=== PATIENT | male | born 1950 | race Caucasian/White ===

== ENCOUNTER 2018-07-14 08:34 | Outpatient (CLI) | payer MEDICARE ==
--- NOTE | 2018-07-14 11:17 | CT ---
NONCONTRAST LOW DOSE CT PULMONARY LUNG SCAN: Date: 07-14-18 History: Tobacco abuse. 30+ year history of smoking. Comparison: None available. FINDINGS: There are scattered peripherally located interstitial linear densities within the anterior aspects of the upper lobes bilaterally as well as in the region of the lingula and right middle lobe in each job ng base which may be related to mild chronic interstitial lung changes although a few areas of slight ly greater patchy density are seen and superimposed pneumonitis cannot be entirely excluded. No discrete pulmonary nodule or mass is seen. There is no evidence of a pleural effusion. Vascular calcifications are seen in the coronary arteries as well as involving the thoracic aorta. Lack of intravenous contrast limits evaluation of the vascular structures and mediastinum. There is a mildly prominent precarinal lymph node which measures 1.2 cm in short axis dimension. No additional enlarged lymph nodes are seen. There is a prominent calcification seen anterior to the right humeral head which appears extracapsula r and is mixed density with areas of fat density and the calcification is irregular. This is overall specific, but has an overall nonaggressive appearance. However, given the appearance of this calcific ation adjacent fat density, MRI right shoulder is recommended for further evaluation with and without IV contrast. Mild degenerative changes are seen in the thoracic spine. The visualized upper abdomen demonstrates grossly normal nonenhanced CT appearance. IMPRESSION: 1. Lung rads category S - Significant findings which need follow-up. Heterogeneous coarse calcificat ion measuring 1.9 cm which demonstrates mixed density with associated areas of fat density. This joaquina ears extracapsular. The exact etiology is uncertain and this could be post-traumatic in origin, but g iven the adjacent fat density and morphology of the calcification, MRI of the right shoulder with and without IV contrast is recommended for further evaluation. This is in the region of the subscapulari s muscle. 2. Lung RADS category 2 - interstitial densities scattered within the periphery of the lungs bilatera lly, greater at the lung bases which may be related to chronic interstitial lung changes. Irregular nodularity with associated interstitial densities within the right middle lobe, again, likely related to chronic lung changes. Continued annual screening with low dose CT scan in 12 months is recommende d. 4. Nonspecific mildly prominent subcarinal lymph node. This may be reactive in origin. POS: [facility]
== END 2018-07-14 08:35 | disposition home or self-care (01) ==
LOC: CT 08:34
PROVIDERS: ATTEND Family Medicine
DX: Z87.891 Personal history of nicotine dependence (principal); J98.4 Other disorders of lung
CPT/HCPCS: G0297

== ENCOUNTER 2018-08-13 14:13 | Outpatient (CLI) | payer MEDICARE ==
[~2018-08-13 14:13] MED LIST: Gadobenate Dimeglumine 529 MG/1 ML (20ML VIAL) ONE
[2018-08-13 15:15] LABS: Estimated GFR-MDRD - POC Greater than 90
--- NOTE | 2018-08-13 17:51 | MRI ---
MRI OF THE RIGHT SHULDER WITH AND WITHOUT IV CONTRAST: DATE: 08/13/2018. PROVIDED CLINICAL HISTORY: Soft tissue mass. FINDINGS: Correlation is made with the CT examination dated 07/14/2018. The calcification described on the CT examination at the caudal aspects of the subscapularis muscle r epresents a calcified component of intramuscular extension of a large fat signal intensity mass at th e posterior aspect of the proximal humerus and right axillary region. This measures approximately 7.3 x 7.7 cm in AP x CC dimensions and approximately 7.8 cm in transverse dimension. This is primarily located at the deep margin of the long head of the triceps muscle, and extends cephalad posterior to the lateral head of the triceps musculature deep to the lateral head o f the deltoid muscle. This demonstrates a medial course in the region of the quadrilateral space wit h extension into the caudal aspects of the subscapularis muscle where there is associated coarse calc ification. There is no definitive enhancing nodule evident. There is multifocal fine internal septation with so me somewhat more conspicuous septations near its extent in the quadrilateral space. There is evidence for partial-thickness interstitial tearing involving the distal conjoined tendon. Signal alteration in the region of the superior labrum may reflect SLAP tear. 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 IMPRESSION: Large lipomatous lesion at the posterior aspect of the right shoulder as described above. 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 Complicated lipoma could also be considered. POS: OFF
== END 2018-08-13 14:14 | disposition home or self-care (01) ==
LOC: SCSMRI 14:13
PROVIDERS: ATTEND Orthopaedic Surgery
DX: M24.011 Loose body in right shoulder (principal); M25.411 Effusion, right shoulder; M25.811 Other specified joint disorders, right shoulder
CPT/HCPCS: 82565

== ENCOUNTER 2019-09-23 15:02 | Emergency (ER) | payer MEDICARE ==
[2019-09-23] MEDS ORDERED: Dexamethasone 4 mg/ml Vial ONE (15:51)
== END 2019-09-23 16:16 | disposition home or self-care (01) ==
LOC: ERS 15:02
DX: L23.7 Allergic contact dermatitis due to plants, except food (principal); E03.9 Hypothyroidism, unspecified; E78.00 Pure hypercholesterolemia, unspecified; Z86.73 Personal history of transient ischemic attack (TIA), and cerebral infarction without residual deficits; Z87.891 Personal history of nicotine dependence
CPT/HCPCS: 96372; 99283; J1100

== ENCOUNTER 2021-01-14 09:41 | Emergency (ER) | payer MEDICARE ==
[2021-01-14 10:23] LABS: #Lymphocytes 1.3 thou/uL (1.20-3.40); #Monocytes 0.3 thou/uL (0.11-0.59); #Neutrophils 3.7 thou/uL (1.40-6.50); %Basophils 0.2 % (0.0-1.0); %Eosinophils 0.5 % (0.0-10.0); %Lymphocytes 24.6 % (21.0-51.0); %Monocytes 5.5 % (0.0-10.0); %Neutrophils 69.2 % (42.0-75.0); Mean Corpuscular Hemoglobin 30.8 pg (27.0-31.0); Mean Corpuscular Volume 93.2 fL (78.0-98.0); Mean Platelet Volume 7.7 fL (7.4-10.4); Platelet Count 166 thou/uL (130-400); RBC Distribution Width 12.8 % (11.5-14.5); Red Blood Cell (RBC) Count 4.55 mill/uL (4.70-6.10); White Blood Cell (WBC) Count 5.4 thou/uL (4.8-10.8)
[2021-01-14 10:45] LABS: ALT (SGPT) 24 U/L (8-55); AST (SGOT) 35 U/L (5-34); Alkaline Phosphatase 57 U/L (40-110); Anion Gap 12 mmol/L (10-20); BUN (Urea Nitrogen) 14 mg/dL (8.4-25.7); Bilirubin, Total 0.5 mg/dL (0.2-1.2); Calc. Creatinine Clearance 0 mL/min (70-130); Calcium 8.8 mg/dL (7.8-10.44); Carbon Dioxide 28 mmol/L (23-31); Chloride 98 mmol/L (98-107); Globulin 3.6 g/dL (2.4-3.5); Glucose 153 mg/dL (80-115); Potassium 3.9 mmol/L (3.5-5.1); Protein, Total 7.6 g/dL (5.8-8.1); Sodium 134 mmol/L (136-145)
== END 2021-01-14 11:29 | disposition home or self-care (01) ==
LOC: ERS 09:41
DX: U07.1 COVID-19 (principal); J12.82 Pneumonia due to coronavirus disease 2019; E03.9 Hypothyroidism, unspecified; E78.00 Pure hypercholesterolemia, unspecified; R73.03 Prediabetes; Z86.73 Personal history of transient ischemic attack (TIA), and cerebral infarction without residual deficits; Z87.891 Personal history of nicotine dependence
CPT/HCPCS: 71045; 80053; 85025

== ENCOUNTER 2021-01-17 17:37 | Inpatient (IN) | payer MEDICARE ==
[2021-01-17] MEDS ORDERED: Acetaminophen 500 MG TAB ONE (18:23)
[2021-01-17] MEDS ORDERED: Ketorolac Tromethamine 30 MG/ML VIAL ONE (18:23)
[2021-01-17 18:48] LABS: #Lymphocytes 1.1 thou/uL (1.20-3.40); #Monocytes 0.4 thou/uL (0.11-0.59); #Neutrophils 5.5 thou/uL (1.40-6.50); %Basophils 0.4 % (0.0-1.0); %Lymphocytes 15.7 % (21.0-51.0); %Monocytes 5.7 % (0.0-10.0); %Neutrophils 78.2 % (42.0-75.0); Hemoglobin 13.4 g/dL (14.0-18.0); Mean Corpuscular HGB CONC 34.4 g/dL (32.0-36.0); Mean Corpuscular Hemoglobin 31.5 pg (27.0-31.0); Mean Corpuscular Volume 91.6 fL (78.0-98.0); Mean Platelet Volume 7.6 fL (7.4-10.4); Platelet Count 187 thou/uL (130-400); RBC Distribution Width 12.7 % (11.5-14.5); Red Blood Cell (RBC) Count 4.25 mill/uL (4.70-6.10); White Blood Cell (WBC) Count 7.1 thou/uL (4.8-10.8)
[2021-01-17 19:01] LABS: ALT (SGPT) 19 U/L (8-55); AST (SGOT) 43 U/L (5-34); Albumin 3.4 g/dL (3.4-4.8); Alkaline Phosphatase 54 U/L (40-110); Anion Gap 12 mmol/L (10-20); BUN (Urea Nitrogen) 14 mg/dL (8.4-25.7); Bilirubin, Total 0.5 mg/dL (0.2-1.2); Calc. Creatinine Clearance 0 mL/min (70-130); Calcium 8.5 mg/dL (7.8-10.44); Carbon Dioxide 28 mmol/L (23-31); Chloride 101 mmol/L (98-107); Globulin 3.4 g/dL (2.4-3.5); Glucose 158 mg/dL (80-115); Potassium 4.1 mmol/L (3.5-5.1); Protein, Total 6.8 g/dL (5.8-8.1); Sodium 137 mmol/L (136-145)
[2021-01-17] MEDS ORDERED: diphenhydrAMINE 50 MG/ML VIAL ONE (21:36)
[2021-01-17] MEDS ORDERED: Dexamethasone 10 MG/ML VIAL ONE (21:40)
[2021-01-17 22:38] LABS: Troponin I Less than 0.010 ng/mL (< 0.028)
[2021-01-17] MEDS ORDERED: Dextrose 50% Abboject 50 ML SYRINGE SLOW IVP PRN (22:47)
[2021-01-17] MEDS ORDERED: Dextrose 5% in Water 1,000 ML IV PRN (22:47)
[2021-01-18] MEDS ORDERED: traZODone HCl 50 MG TAB ONE (00:57)
[2021-01-18 01:38] LABS: Troponin I Less than 0.010 ng/mL (< 0.028)
[2021-01-18] MEDS ORDERED: Enoxaparin Sodium 40 MG/0.4 ML SYRINGE ONE ×2 (02:12→08:34)
[2021-01-18] MEDS: Enoxaparin Sodium 40 MG/0.4 ML SYRINGE SC SCH ×2 (02:17→08:38)
[2021-01-18 05:23] LABS: #Lymphocytes 0.8 thou/uL (1.20-3.40); #Monocytes 0.3 thou/uL (0.11-0.59); #Neutrophils 4.9 thou/uL (1.40-6.50); %Basophils 0.2 % (0.0-1.0); %Eosinophils 0.1 % (0.0-10.0); %Lymphocytes 13.4 % (21.0-51.0); %Monocytes 4.5 % (0.0-10.0); %Neutrophils 81.8 % (42.0-75.0); Hemoglobin 13.1 g/dL (14.0-18.0); Mean Corpuscular HGB CONC 33.1 g/dL (32.0-36.0); Mean Corpuscular Hemoglobin 30.6 pg (27.0-31.0); Mean Corpuscular Volume 92.4 fL (78.0-98.0); Mean Platelet Volume 7.4 fL (7.4-10.4); Platelet Count 196 thou/uL (130-400); RBC Distribution Width 12.8 % (11.5-14.5); Red Blood Cell (RBC) Count 4.29 mill/uL (4.70-6.10); White Blood Cell (WBC) Count 5.9 thou/uL (4.8-10.8)
[2021-01-18 05:41] LABS: ALT (SGPT) 21 U/L (8-55); AST (SGOT) 40 U/L (5-34); Albumin 3.2 g/dL (3.4-4.8); Alkaline Phosphatase 52 U/L (40-110); Anion Gap 10 mmol/L (10-20); BUN (Urea Nitrogen) 16 mg/dL (8.4-25.7); Bilirubin, Total 0.5 mg/dL (0.2-1.2); Calc. Creatinine Clearance 108 mL/min (70-130); Calcium 8.7 mg/dL (7.8-10.44); Carbon Dioxide 30 mmol/L (23-31); Chloride 100 mmol/L (98-107); Globulin 3.5 g/dL (2.4-3.5); Glucose 217 mg/dL (80-115); Potassium 4.1 mmol/L (3.5-5.1); Protein, Total 6.7 g/dL (5.8-8.1); Sodium 136 mmol/L (136-145)
[2021-01-18] MEDS ORDERED: Dexamethasone 4 MG TAB ONE (08:32)
[2021-01-18] MEDS ORDERED: Aspirin 325 MG TAB ONE (08:32)
[2021-01-18] MEDS: Dexamethasone 4 MG TAB PO SCH (08:38)
[2021-01-18] MEDS: metFORMIN 500 MG TAB PO SCH ×2 (08:50→16:23)
[2021-01-18] MEDS: Levothyroxine Sodium 100 MCG TAB PO SCH (08:50)
[2021-01-18] MEDS ORDERED: Aspirin 325 mg Enteric Coated Tablet PO SCH (09:00)
[2021-01-18] MEDS: HumaLOG 300 UNITS/3 ML VIAL SC PRN ×3 (11:41→20:49)
[2021-01-18] MEDS: Atorvastatin Calcium 40 MG TAB PO SCH (20:41)
[2021-01-18] MEDS: Acetaminophen 325 MG TAB PO PRN (21:06)
[2021-01-19 05:25] LABS: #Lymphocytes 1.5 thou/uL (1.20-3.40); #Neutrophils 11.2 thou/uL (1.40-6.50); %Basophils 0.2 % (0.0-1.0); %Lymphocytes 10.7 % (21.0-51.0); %Monocytes 7.5 % (0.0-10.0); %Neutrophils 81.6 % (42.0-75.0); Mean Corpuscular HGB CONC 34.1 g/dL (32.0-36.0); Mean Corpuscular Hemoglobin 31.3 pg (27.0-31.0); Mean Corpuscular Volume 91.7 fL (78.0-98.0); Mean Platelet Volume 7.8 fL (7.4-10.4); Platelet Count 238 thou/uL (130-400); RBC Distribution Width 12.6 % (11.5-14.5); Red Blood Cell (RBC) Count 4.15 mill/uL (4.70-6.10); White Blood Cell (WBC) Count 13.8 thou/uL (4.8-10.8)
[2021-01-19] MEDS: Levothyroxine Sodium 100 MCG TAB PO SCH (05:44)
[2021-01-19] MEDS: HumaLOG 300 UNITS/3 ML VIAL SC PRN ×3 (05:57→17:18)
[2021-01-19 05:59] LABS: ALT (SGPT) 19 U/L (8-55); AST (SGOT) 43 U/L (5-34); Albumin 3.1 g/dL (3.4-4.8); Alkaline Phosphatase 53 U/L (40-110); Anion Gap 13 mmol/L (10-20); BUN (Urea Nitrogen) 21 mg/dL (8.4-25.7); Bilirubin, Total 0.4 mg/dL (0.2-1.2); Calc. Creatinine Clearance 121 mL/min (70-130); Calcium 8.7 mg/dL (7.8-10.44); Carbon Dioxide 25 mmol/L (23-31); Chloride 101 mmol/L (98-107); Globulin 3.3 g/dL (2.4-3.5); Glucose 190 mg/dL (80-115); Protein, Total 6.4 g/dL (5.8-8.1); Sodium 135 mmol/L (136-145)
[2021-01-19] MEDS: Benzonatate 100 MG CAP PO PRN ×2 (06:11→21:09)
[2021-01-19] MEDS: Aspirin 325 mg Enteric Coated Tablet PO SCH (08:36)
[2021-01-19] MEDS: Famotidine 20 MG TAB PO SCH (08:36)
[2021-01-19] MEDS: Enoxaparin Sodium 40 MG/0.4 ML SYRINGE SC SCH (08:37)
[2021-01-19] MEDS: Dexamethasone 4 MG TAB PO SCH (08:37)
[2021-01-19] MEDS: metFORMIN 500 MG TAB PO SCH ×2 (08:37→17:18)
[2021-01-19] MEDS: Atorvastatin Calcium 40 MG TAB PO SCH (21:09)
[2021-01-20] MEDS: Benzonatate 100 MG CAP PO PRN ×3 (02:28→21:35)
[2021-01-20] MEDS: Guaifenesin DM 100-10/5 ML UDCUP PO PRN ×2 (02:52→17:47)
[2021-01-20] MEDS: Levothyroxine Sodium 100 MCG TAB PO SCH (05:17)
[2021-01-20] MEDS: Acetaminophen 325 MG TAB PO PRN (05:42)
[2021-01-20] MEDS: HumaLOG 300 UNITS/3 ML VIAL SC PRN ×2 (05:43→17:40)
[2021-01-20 07:24] LABS: #Lymphocytes 1.4 thou/uL (1.20-3.40); #Neutrophils 15.2 thou/uL (1.40-6.50); %Basophils 0.1 % (0.0-1.0); %Eosinophils 0.1 % (0.0-10.0); %Lymphocytes 7.7 % (21.0-51.0); %Monocytes 5.8 % (0.0-10.0); %Neutrophils 86.4 % (42.0-75.0); Hemoglobin 12.8 g/dL (14.0-18.0); Mean Corpuscular HGB CONC 33.2 g/dL (32.0-36.0); Mean Corpuscular Hemoglobin 30.2 pg (27.0-31.0); Mean Corpuscular Volume 90.9 fL (78.0-98.0); Mean Platelet Volume 7.4 fL (7.4-10.4); Platelet Count 311 thou/uL (130-400); RBC Distribution Width 12.8 % (11.5-14.5); Red Blood Cell (RBC) Count 4.23 mill/uL (4.70-6.10); White Blood Cell (WBC) Count 17.6 thou/uL (4.8-10.8)
[2021-01-20 07:44] LABS: ALT (SGPT) 25 U/L (8-55); AST (SGOT) 51 U/L (5-34); Albumin 3.3 g/dL (3.4-4.8); Alkaline Phosphatase 77 U/L (40-110); Anion Gap 15 mmol/L (10-20); BUN (Urea Nitrogen) 19 mg/dL (8.4-25.7); Bilirubin, Total 0.8 mg/dL (0.2-1.2); Calc. Creatinine Clearance 119 mL/min (70-130); Calcium 8.9 mg/dL (7.8-10.44); Carbon Dioxide 27 mmol/L (23-31); Chloride 98 mmol/L (98-107); Globulin 3.6 g/dL (2.4-3.5); Glucose 163 mg/dL (80-115); Potassium 3.6 mmol/L (3.5-5.1); Protein, Total 6.9 g/dL (5.8-8.1); Sodium 136 mmol/L (136-145)
[2021-01-20] MEDS: Famotidine 20 MG TAB PO SCH (08:37)
[2021-01-20] MEDS: Aspirin 325 mg Enteric Coated Tablet PO SCH (08:37)
[2021-01-20] MEDS: Enoxaparin Sodium 40 MG/0.4 ML SYRINGE SC SCH (08:37)
[2021-01-20] MEDS: Dexamethasone 4 MG TAB PO SCH (08:37)
[2021-01-20] MEDS: metFORMIN 500 MG TAB PO SCH ×2 (08:37→17:40)
[2021-01-20] MEDS: Atorvastatin Calcium 40 MG TAB PO SCH (21:32)
[2021-01-21] MEDS: Guaifenesin DM 100-10/5 ML UDCUP PO PRN ×2 (01:35→23:52)
[2021-01-21] MEDS: Levothyroxine Sodium 100 MCG TAB PO SCH (06:09)
[2021-01-21 06:40] LABS: #Lymphocytes 1.1 thou/uL (1.20-3.40); #Monocytes 0.8 thou/uL (0.11-0.59); #Neutrophils 13.9 thou/uL (1.40-6.50); %Basophils 0.3 % (0.0-1.0); %Eosinophils 0.1 % (0.0-10.0); %Lymphocytes 7.2 % (21.0-51.0); %Monocytes 4.8 % (0.0-10.0); %Neutrophils 87.6 % (42.0-75.0); Hemoglobin 13.2 g/dL (14.0-18.0); Mean Corpuscular HGB CONC 34.3 g/dL (32.0-36.0); Mean Corpuscular Hemoglobin 31.2 pg (27.0-31.0); Mean Corpuscular Volume 91.1 fL (78.0-98.0); Mean Platelet Volume 7.5 fL (7.4-10.4); Platelet Count 281 thou/uL (130-400); RBC Distribution Width 12.7 % (11.5-14.5); Red Blood Cell (RBC) Count 4.23 mill/uL (4.70-6.10); White Blood Cell (WBC) Count 15.9 thou/uL (4.8-10.8)
[2021-01-21 07:08] LABS: ALT (SGPT) 28 U/L (8-55); AST (SGOT) 42 U/L (5-34); Alkaline Phosphatase 89 U/L (40-110); Anion Gap 10 mmol/L (10-20); BUN (Urea Nitrogen) 19 mg/dL (8.4-25.7); Calc. Creatinine Clearance 133 mL/min (70-130); Calcium 8.6 mg/dL (7.8-10.44); Carbon Dioxide 31 mmol/L (23-31); Chloride 100 mmol/L (98-107); Globulin 3.5 g/dL (2.4-3.5); Glucose 156 mg/dL (80-115); Potassium 3.6 mmol/L (3.5-5.1); Protein, Total 6.5 g/dL (5.8-8.1); Sodium 137 mmol/L (136-145)
[2021-01-21] MEDS: Enoxaparin Sodium 40 MG/0.4 ML SYRINGE SC SCH (08:33)
[2021-01-21] MEDS: Aspirin 325 mg Enteric Coated Tablet PO SCH (08:34)
[2021-01-21] MEDS: Acetaminophen 325 MG TAB PO PRN (08:34)
[2021-01-21] MEDS: Dexamethasone 4 MG TAB PO SCH (08:34)
[2021-01-21] MEDS: Famotidine 20 MG TAB PO SCH (08:34)
[2021-01-21] MEDS: metFORMIN 500 MG TAB PO SCH ×2 (08:34→16:18)
[2021-01-21] MEDS: Benzonatate 100 MG CAP PO PRN ×2 (08:34→20:15)
[2021-01-21] MEDS: Lorazepam 0.5 MG TAB PO PRN ×2 (12:34→22:13)
[2021-01-21] MEDS: HumaLOG 300 UNITS/3 ML VIAL SC PRN ×2 (12:34→16:17)
[2021-01-21] MEDS: Atorvastatin Calcium 40 MG TAB PO SCH (20:15)
[2021-01-22] MEDS ORDERED: Albuterol Sulfate 2.5 mg/3 ml Neb EZPAP PRN (02:04)
[2021-01-22] MEDS ORDERED: Albuterol Sulfate 2.5 mg/3 ml Neb NEB SCH (03:00)
[2021-01-22] MEDS ORDERED: guaiFENesin ER 600 MG TAB PO SCH (03:00)
[2021-01-22 03:35] LABS: Actual Bicarbonate (HCO3a) 26.8 mEq/L (22-28); Base Excess (BEa) 4.3 mEq/L (-2.0 to +3.0); CO2 Tension 33.6 mmHg (35.0-45.0); Calcium, Ionized (arterial) 1.11 mmol/L (1.12-1.30); Carboxyhemoglobin (COHb) 0.6 gm% (0.0-3.0); Hemoglobin (Hb) 13.6 g/dL (14.0-18.0); Potassium - ABG Lab 3.51 mmol/L (3.70-5.30); pH, Arterial 7.52 (7.35-7.45)
[2021-01-22 03:37] LABS: O2 Tension (PaO2), arterial 52.4 mmHg (> 80.0); Puncture Site RRA
[2021-01-22 05:18] LABS: Actual Bicarbonate (HCO3a) 26.6 mEq/L (22-28); Base Excess (BEa) 3.2 mEq/L (-2.0 to +3.0); CO2 Tension 36.7 mmHg (35.0-45.0); Calcium, Ionized (arterial) 1.11 mmol/L (1.12-1.30); Carboxyhemoglobin (COHb) 0.3 gm% (0.0-3.0); Hemoglobin (Hb) 13.2 g/dL (14.0-18.0); O2 Tension (PaO2), arterial 98.2 mmHg (> 80.0); Potassium - ABG Lab 3.42 mmol/L (3.70-5.30); pH, Arterial 7.48 (7.35-7.45)
[2021-01-22 05:21] LABS: Puncture Site LRA
[2021-01-22 05:22] LABS: ALV-art Gradient 426.325 mmHg (0-20)
[2021-01-22] MEDS: Levothyroxine Sodium 100 MCG TAB PO SCH (06:51)
[2021-01-22 07:19] LABS: #Monocytes 0.4 thou/uL (0.11-0.59); %Basophils 0.1 % (0.0-1.0); %Lymphocytes 6.2 % (21.0-51.0); %Monocytes 2.4 % (0.0-10.0); %Neutrophils 91.3 % (42.0-75.0); Mean Corpuscular HGB CONC 34.1 g/dL (32.0-36.0); Mean Corpuscular Hemoglobin 31.2 pg (27.0-31.0); Mean Corpuscular Volume 91.5 fL (78.0-98.0); Mean Platelet Volume 7.5 fL (7.4-10.4); Platelet Count 267 thou/uL (130-400); RBC Distribution Width 12.7 % (11.5-14.5); Red Blood Cell (RBC) Count 4.17 mill/uL (4.70-6.10); White Blood Cell (WBC) Count 15.3 thou/uL (4.8-10.8)
[2021-01-22 07:48] LABS: ALT (SGPT) 35 U/L (8-55); AST (SGOT) 40 U/L (5-34); Albumin 3.1 g/dL (3.4-4.8); Alkaline Phosphatase 115 U/L (40-110); Anion Gap 15 mmol/L (10-20); BUN (Urea Nitrogen) 19 mg/dL (8.4-25.7); Bilirubin, Total 1.3 mg/dL (0.2-1.2); Calc. Creatinine Clearance 147 mL/min (70-130); Calcium 8.4 mg/dL (7.8-10.44); Carbon Dioxide 28 mmol/L (23-31); Chloride 99 mmol/L (98-107); Globulin 3.2 g/dL (2.4-3.5); Glucose 148 mg/dL (80-115); Potassium 3.7 mmol/L (3.5-5.1); Protein, Total 6.3 g/dL (5.8-8.1); Sodium 138 mmol/L (136-145)
[2021-01-22] MEDS: Enoxaparin Sodium 40 MG/0.4 ML SYRINGE SC SCH ×2 (08:37→20:11)
[2021-01-22] MEDS: Famotidine 20 MG TAB PO SCH (08:38)
[2021-01-22] MEDS: metFORMIN 500 MG TAB PO SCH ×2 (08:38→18:38)
[2021-01-22] MEDS: Aspirin 325 mg Enteric Coated Tablet PO SCH (08:38)
[2021-01-22] MEDS: Dexamethasone 4 MG TAB PO SCH ×2 (08:38→20:11)
[2021-01-22] MEDS ORDERED: BARICITINIB 2 MG TAB PO SCH (10:45)
[2021-01-22] MEDS: BARICITINIB 2 MG TAB PO SCH (18:39)
[2021-01-22] MEDS: Atorvastatin Calcium 40 MG TAB PO SCH (20:11)
[2021-01-22] MEDS: HumaLOG 300 UNITS/3 ML VIAL SC PRN (20:27)
[2021-01-22] MEDS: Mometasone 200 MCG/Formoterol 5 MCG 120 PUFF INHALER INH SCH (21:46)
[2021-01-23] MEDS: Melatonin 3 MG TAB PO PRN (00:09)
[2021-01-23] MEDS: Benzonatate 100 MG CAP PO PRN (00:09)
[2021-01-23 04:04] LABS: #Lymphocytes 0.7 thou/uL (1.20-3.40); #Monocytes 0.4 thou/uL (0.11-0.59); #Neutrophils 14.1 thou/uL (1.40-6.50); %Lymphocytes 4.8 % (21.0-51.0); %Monocytes 2.5 % (0.0-10.0); %Neutrophils 92.7 % (42.0-75.0); Hemoglobin 12.9 g/dL (14.0-18.0); Mean Corpuscular HGB CONC 34.6 g/dL (32.0-36.0); Mean Corpuscular Hemoglobin 31.8 pg (27.0-31.0); Mean Corpuscular Volume 91.9 fL (78.0-98.0); Mean Platelet Volume 7.7 fL (7.4-10.4); Platelet Count 269 thou/uL (130-400); RBC Distribution Width 12.8 % (11.5-14.5); Red Blood Cell (RBC) Count 4.04 mill/uL (4.70-6.10); White Blood Cell (WBC) Count 15.2 thou/uL (4.8-10.8)
[2021-01-23 04:38] LABS: ALT (SGPT) 49 U/L (8-55); AST (SGOT) 47 U/L (5-34); Alkaline Phosphatase 111 U/L (40-110); Anion Gap 13 mmol/L (10-20); BUN (Urea Nitrogen) 21 mg/dL (8.4-25.7); Calc. Creatinine Clearance 126 mL/min (70-130); Calcium 8.6 mg/dL (7.8-10.44); Carbon Dioxide 28 mmol/L (23-31); Chloride 101 mmol/L (98-107); Globulin 3.8 g/dL (2.4-3.5); Glucose 194 mg/dL (80-115); Potassium 3.7 mmol/L (3.5-5.1); Protein, Total 6.8 g/dL (5.8-8.1); Sodium 138 mmol/L (136-145)
[2021-01-23] MEDS: Levothyroxine Sodium 100 MCG TAB PO SCH (05:16)
[2021-01-23] MEDS: HumaLOG 300 UNITS/3 ML VIAL SC PRN ×3 (06:22→21:23)
[2021-01-23] MEDS: Mometasone 200 MCG/Formoterol 5 MCG 120 PUFF INHALER INH SCH ×2 (06:22→18:59)
[2021-01-23] MEDS: Aspirin 325 mg Enteric Coated Tablet PO SCH (08:57)
[2021-01-23] MEDS: Famotidine 20 MG TAB PO SCH ×2 (08:57→20:06)
[2021-01-23] MEDS: Guaifenesin DM 100-10/5 ML UDCUP PO PRN ×2 (08:57→21:33)
[2021-01-23] MEDS: Enoxaparin Sodium 40 MG/0.4 ML SYRINGE SC SCH ×2 (08:57→20:06)
[2021-01-23] MEDS: metFORMIN 500 MG TAB PO SCH ×2 (08:57→16:48)
[2021-01-23] MEDS: Dexamethasone 4 MG TAB PO SCH ×2 (08:57→20:06)
[2021-01-23] MEDS: BARICITINIB 2 MG TAB PO SCH (16:48)
[2021-01-23] MEDS: Atorvastatin Calcium 40 MG TAB PO SCH (20:06)
[2021-01-23] MEDS ORDERED: Sodium Chloride 0.65% Nasal 44 ML BOT EA NARE PRN (21:27)
[2021-01-24] MEDS: Guaifenesin DM 100-10/5 ML UDCUP PO PRN ×4 (02:35→22:53)
[2021-01-24 03:59] LABS: #Lymphocytes 0.9 thou/uL (1.20-3.40); #Monocytes 0.4 thou/uL (0.11-0.59); #Neutrophils 12.5 thou/uL (1.40-6.50); %Basophils 0.1 % (0.0-1.0); %Eosinophils 0.1 % (0.0-10.0); %Lymphocytes 6.7 % (21.0-51.0); %Monocytes 3.2 % (0.0-10.0); %Neutrophils 89.9 % (42.0-75.0); Hemoglobin 13.4 g/dL (14.0-18.0); Mean Corpuscular HGB CONC 34.3 g/dL (32.0-36.0); Mean Corpuscular Hemoglobin 31.3 pg (27.0-31.0); Mean Corpuscular Volume 91.5 fL (78.0-98.0); Mean Platelet Volume 7.5 fL (7.4-10.4); Platelet Count 333 thou/uL (130-400); RBC Distribution Width 12.8 % (11.5-14.5); Red Blood Cell (RBC) Count 4.29 mill/uL (4.70-6.10); White Blood Cell (WBC) Count 13.9 thou/uL (4.8-10.8)
[2021-01-24 04:28] LABS: ALT (SGPT) 104 U/L (8-55); AST (SGOT) 76 U/L (5-34); Albumin 2.9 g/dL (3.4-4.8); Alkaline Phosphatase 114 U/L (40-110); Anion Gap 14 mmol/L (10-20); BUN (Urea Nitrogen) 25 mg/dL (8.4-25.7); Calc. Creatinine Clearance 117 mL/min (70-130); Calcium 8.6 mg/dL (7.8-10.44); Carbon Dioxide 24 mmol/L (23-31); Chloride 104 mmol/L (98-107); Globulin 3.9 g/dL (2.4-3.5); Glucose 194 mg/dL (80-115); Potassium 3.7 mmol/L (3.5-5.1); Protein, Total 6.8 g/dL (5.8-8.1); Sodium 138 mmol/L (136-145)
[2021-01-24] MEDS: Levothyroxine Sodium 100 MCG TAB PO SCH (05:16)
[2021-01-24] MEDS: HumaLOG 300 UNITS/3 ML VIAL SC PRN ×2 (05:17→20:10)
[2021-01-24] MEDS: Mometasone 200 MCG/Formoterol 5 MCG 120 PUFF INHALER INH SCH ×2 (06:59→16:18)
[2021-01-24] MEDS: Famotidine 20 MG TAB PO SCH ×2 (08:21→20:07)
[2021-01-24] MEDS: Aspirin 325 mg Enteric Coated Tablet PO SCH (08:21)
[2021-01-24] MEDS: Enoxaparin Sodium 40 MG/0.4 ML SYRINGE SC SCH ×2 (08:21→20:07)
[2021-01-24] MEDS: metFORMIN 500 MG TAB PO SCH (08:21)
[2021-01-24] MEDS: Dexamethasone 4 MG TAB PO SCH ×2 (08:21→20:07)
[2021-01-24] MEDS ORDERED: HumaLOG 300 UNITS/3 ML VIAL SC SCH (13:30)
[2021-01-24] MEDS: BARICITINIB 2 MG TAB PO SCH (16:18)
[2021-01-24] MEDS: Atorvastatin Calcium 40 MG TAB PO SCH (20:07)
[2021-01-24] MEDS: Melatonin 3 MG TAB PO PRN (20:07)
[2021-01-24] MEDS: Benzonatate 100 MG CAP PO PRN (20:07)
[2021-01-24] MEDS: Lorazepam 0.5 MG TAB PO PRN (22:53)
[2021-01-25] MEDS: Benzonatate 100 MG CAP PO PRN (03:37)
[2021-01-25] MEDS: Guaifenesin DM 100-10/5 ML UDCUP PO PRN (03:37)
[2021-01-25 04:14] LABS: ALT (SGPT) 89 U/L (8-55); AST (SGOT) 45 U/L (5-34); Albumin 2.8 g/dL (3.4-4.8); Alkaline Phosphatase 108 U/L (40-110); Bilirubin, Direct 0.3 mg/dL (0.1-0.3); Bilirubin, Total 0.8 mg/dL (0.2-1.2); Protein, Total 6.4 g/dL (5.8-8.1)
[2021-01-25 04:17] LABS: ALT (SGPT) 88 U/L (8-55); AST (SGOT) 44 U/L (5-34); Albumin 2.7 g/dL (3.4-4.8); Alkaline Phosphatase 107 U/L (40-110); Anion Gap 11 mmol/L (10-20); BUN (Urea Nitrogen) 28 mg/dL (8.4-25.7); Bilirubin, Total 0.9 mg/dL (0.2-1.2); Calc. Creatinine Clearance 117 mL/min (70-130); Calcium 8.3 mg/dL (7.8-10.44); Carbon Dioxide 26 mmol/L (23-31); Chloride 105 mmol/L (98-107); Globulin 3.8 g/dL (2.4-3.5); Glucose 172 mg/dL (80-115); Potassium 3.7 mmol/L (3.5-5.1); Protein, Total 6.5 g/dL (5.8-8.1); Sodium 138 mmol/L (136-145)
[2021-01-25] MEDS: Lorazepam 0.5 MG TAB PO PRN (04:18)
[2021-01-25 04:20] LABS: Hemoglobin 12.5 g/dL (14.0-18.0); Hypochromia SLIGHT = 6-15 cells (100X) (0-5/hpf); Lymphocytes 14 % (21-51); MDiff Complete? YES; Mean Corpuscular HGB CONC 35.3 g/dL (32.0-36.0); Mean Corpuscular Volume 90.6 fL (78.0-98.0); Mean Platelet Volume 7.6 fL (7.4-10.4); Monocytes 7 % (0-10); Neutrophil 79 % (42-75); Platelet Count 311 thou/uL (130-400); Platelet Morphology Comment Appears Adequate; RBC Distribution Width 12.7 % (11.5-14.5); Red Blood Cell (RBC) Count 3.92 mill/uL (4.70-6.10)
[2021-01-25] MEDS: Levothyroxine Sodium 100 MCG TAB PO SCH (05:01)
[2021-01-25] MEDS: HumaLOG 300 UNITS/3 ML VIAL SC PRN (06:00)
[2021-01-25] MEDS ORDERED: Lorazepam 1 MG TAB PO SCH (06:50)
[2021-01-25] MEDS: Mometasone 200 MCG/Formoterol 5 MCG 120 PUFF INHALER INH SCH ×2 (06:51→20:30)
[2021-01-25] MEDS: Dexamethasone 4 MG TAB PO SCH (07:51)
[2021-01-25] MEDS: Aspirin 325 mg Enteric Coated Tablet PO SCH (07:51)
[2021-01-25] MEDS: Famotidine 20 MG TAB PO SCH ×2 (07:51→20:15)
[2021-01-25] MEDS: Lantus 1000 UNITS/10 ML VIAL SC SCH (07:51)
[2021-01-25] MEDS: Enoxaparin Sodium 40 MG/0.4 ML SYRINGE SC SCH ×2 (09:56→20:15)
[2021-01-25] MEDS: Morphine 2 MG/ML VIAL SLOW IVP PRN ×2 (09:56→14:07)
[2021-01-25] MEDS ORDERED: Succinylcholine 200 MG/10 ml SYRINGE FS ONE (15:00)
[2021-01-25] MEDS ORDERED: Fentanyl CADD 100 ML ONE (15:29)
[2021-01-25] MEDS ORDERED: Ventilator Sedation Protocol 1 EACH FS ONE (15:39)
[2021-01-25] MEDS ORDERED: Electrolyte Replacement Protocol 1 EACH FS ONE (15:39)
[2021-01-25] MEDS ORDERED: Lorazepam 2 MG/ML VIAL ONE (15:40)
[2021-01-25] MEDS ORDERED: Vecuronium 10 MG VIAL ONE (15:41)
[2021-01-25] MEDS ORDERED: Succinylcholine 200 MG/10 ml SYRINGE FS SCH (15:45)
[2021-01-25] MEDS ORDERED: Rocuronium Bromide 50 MG/5 ML VIAL IVP SCH (15:50)
[2021-01-25] MEDS ORDERED: Propofol BOLUS 1,000 MG/100 ML VIAL IV PRN (16:15)
[2021-01-25] MEDS ORDERED: Morphine 2 MG/ML VIAL SLOW IVP PRN (16:15)
[2021-01-25] MEDS ORDERED: DISCONTINUE PREVIOUS NARCOTIC PAIN MEDICATIONS AND BENZODIAZEPINES FS SCH (16:15)
[2021-01-25] MEDS ORDERED: Fentanyl BOLUS 250 ML IVPB PRN (16:15)
[2021-01-25] MEDS ORDERED: Electrolyte Replacement Protocol FS PRN (16:15)
[2021-01-25 16:40] LABS: Actual Bicarbonate (HCO3a) 23.4 mEq/L (22-28); Base Excess (BEa) -4.2 mEq/L (-2.0 to +3.0); CO2 Tension 53.7 mmHg (35.0-45.0); O2 Tension (PaO2), arterial 68.3 mmHg (> 80.0); pH, Arterial 7.26 (7.35-7.45)
[2021-01-25 16:53] LABS: Carboxyhemoglobin (COHb) 0.2 gm% (0.0-3.0); Hemoglobin (Hb) 12.8 g/dL (14.0-18.0)
[2021-01-25 16:54] LABS: Analyzer IN Cardio OR; Calcium, Ionized (arterial) 1.17 mmol/L (1.12-1.30); Potassium - ABG Lab 3.45 mmol/L (3.70-5.30); Puncture Site RRA
[2021-01-25 16:55] LABS: ALV-art Gradient 506.275 mmHg (0-20)
[2021-01-25] MEDS: BARICITINIB 2 MG TAB PO SCH (17:06)
[2021-01-25] MEDS: Lorazepam 2 MG/ML VIAL SLOW IVP PRN (17:06)
[2021-01-25] MEDS: Vecuronium 10 MG VIAL IVP PRN (18:21)
[2021-01-25] MEDS: Propofol 1,000 MG/100 ML VIAL IV PRN ×2 (18:21→20:15)
[2021-01-25] MEDS: Dexamethasone 4 mg/ml Vial SLOW IVP SCH (20:15)
[2021-01-25] MEDS: Atorvastatin Calcium 40 MG TAB PO SCH (20:15)
[2021-01-25] MEDS: Melatonin 3 MG TAB PO PRN (20:15)
[2021-01-26] MEDS: Propofol 1,000 MG/100 ML VIAL IV PRN ×5 (02:23→20:33)
[2021-01-26] MEDS: Lorazepam 2 MG/ML VIAL SLOW IVP PRN ×2 (02:27→15:24)
[2021-01-26] MEDS: Vecuronium 10 MG VIAL IVP PRN ×2 (02:27→15:24)
[2021-01-26 05:13] LABS: Band 21 % (5-11); Lymphocytes 1 % (21-51); MDiff Complete? YES; Mean Corpuscular HGB CONC 34.9 g/dL (32.0-36.0); Mean Corpuscular Volume 91.5 fL (78.0-98.0); Mean Platelet Volume 7.8 fL (7.4-10.4); Metamyelocyte 1 % (0-0); Monocytes 1 % (0-10); Neutrophil 76 % (42-75); Platelet Count 294 thou/uL (130-400); Platelet Morphology Comment Appears Adequate; RBC Distribution Width 12.7 % (11.5-14.5); Red Blood Cell (RBC) Count 3.75 mill/uL (4.70-6.10); White Blood Cell (WBC) Count 22.6 thou/uL (4.8-10.8)
[2021-01-26 05:20] LABS: ALT (SGPT) 63 U/L (8-55); AST (SGOT) 28 U/L (5-34); Albumin 2.5 g/dL (3.4-4.8); Alkaline Phosphatase 97 U/L (40-110); Anion Gap 10 mmol/L (10-20); BUN (Urea Nitrogen) 26 mg/dL (8.4-25.7); Calc. Creatinine Clearance 115 mL/min (70-130); Calcium 8.1 mg/dL (7.8-10.44); Carbon Dioxide 28 mmol/L (23-31); Chloride 103 mmol/L (98-107); Globulin 3.6 g/dL (2.4-3.5); Glucose 218 mg/dL (80-115); Potassium 4.2 mmol/L (3.5-5.1); Protein, Total 6.1 g/dL (5.8-8.1); Sodium 137 mmol/L (136-145)
[2021-01-26] MEDS: Levothyroxine Sodium 100 MCG TAB PO SCH (05:29)
[2021-01-26] MEDS: HumaLOG 300 UNITS/3 ML VIAL SC PRN ×3 (06:23→22:55)
[2021-01-26] MEDS: Mometasone 200 MCG/Formoterol 5 MCG 120 PUFF INHALER INH SCH ×2 (07:42→21:08)
[2021-01-26 07:56] LABS: Actual Bicarbonate (HCO3a) 26.2 mEq/L (22-28); Base Excess (BEa) 1.3 mEq/L (-2.0 to +3.0); CO2 Tension 42.6 mmHg (35.0-45.0); Calcium, Ionized (arterial) 1.14 mmol/L (1.12-1.30); Carboxyhemoglobin (COHb) 0.3 gm% (0.0-3.0); Hemoglobin (Hb) 11.9 g/dL (14.0-18.0); O2 Tension (PaO2), arterial 85.5 mmHg (> 80.0); pH, Arterial 7.41 (7.35-7.45)
[2021-01-26 07:58] LABS: Puncture Site RRA
[2021-01-26] MEDS: Aspirin 325 mg Enteric Coated Tablet PO SCH (08:35)
[2021-01-26] MEDS: Dexamethasone 4 mg/ml Vial SLOW IVP SCH ×2 (08:35→20:36)
[2021-01-26] MEDS: Enoxaparin Sodium 40 MG/0.4 ML SYRINGE SC SCH ×2 (08:35→20:36)
[2021-01-26] MEDS: Famotidine 20 MG TAB PO SCH ×2 (08:35→20:36)
[2021-01-26] MEDS: Lantus 1000 UNITS/10 ML VIAL SC SCH (08:37)
[2021-01-26] MEDS ORDERED: Fentanyl CADD 100 ML ONE (10:04)
[2021-01-26] MEDS: BARICITINIB 2 MG TAB PO SCH (17:01)
[2021-01-26] MEDS: Atorvastatin Calcium 40 MG TAB PO SCH (20:36)
[2021-01-27] MEDS: Propofol 1,000 MG/100 ML VIAL IV PRN ×5 (00:48→21:29)
[2021-01-27 04:33] LABS: #Lymphocytes 0.6 thou/uL (1.20-3.40); #Monocytes 0.3 thou/uL (0.11-0.59); #Neutrophils 10.3 thou/uL (1.40-6.50); %Eosinophils 0.1 % (0.0-10.0); %Lymphocytes 5.5 % (21.0-51.0); %Monocytes 2.5 % (0.0-10.0); %Neutrophils 91.9 % (42.0-75.0); Mean Corpuscular HGB CONC 35.1 g/dL (32.0-36.0); Mean Platelet Volume 8.2 fL (7.4-10.4); Platelet Count 275 thou/uL (130-400); RBC Distribution Width 12.7 % (11.5-14.5); Red Blood Cell (RBC) Count 3.44 mill/uL (4.70-6.10); White Blood Cell (WBC) Count 11.2 thou/uL (4.8-10.8)
[2021-01-27] MEDS ORDERED: Fentanyl CADD 100 ML ONE ×2 (04:45→23:50)
[2021-01-27] MEDS: HumaLOG 300 UNITS/3 ML VIAL SC PRN ×4 (04:49→21:06)
[2021-01-27] MEDS: Fentanyl CADD 100 ML IV SCH ×2 (04:50→23:53)
[2021-01-27 04:51] LABS: ALT (SGPT) 54 U/L (8-55); AST (SGOT) 30 U/L (5-34); Albumin 2.3 g/dL (3.4-4.8); Alkaline Phosphatase 84 U/L (40-110); Anion Gap 9 mmol/L (10-20); BUN (Urea Nitrogen) 31 mg/dL (8.4-25.7); Bilirubin, Total 0.9 mg/dL (0.2-1.2); Calc. Creatinine Clearance 114 mL/min (70-130); Calcium 8.3 mg/dL (7.8-10.44); Carbon Dioxide 28 mmol/L (23-31); Chloride 105 mmol/L (98-107); Globulin 3.5 g/dL (2.4-3.5); Glucose 240 mg/dL (80-115); Potassium 3.9 mmol/L (3.5-5.1); Protein, Total 5.8 g/dL (5.8-8.1); Sodium 138 mmol/L (136-145)
[2021-01-27] MEDS: Levothyroxine Sodium 100 MCG TAB PO SCH (05:26)
[2021-01-27] MEDS: Mometasone 200 MCG/Formoterol 5 MCG 120 PUFF INHALER INH SCH ×2 (06:38→18:45)
[2021-01-27 06:48] LABS: Actual Bicarbonate (HCO3a) 23.7 mEq/L (22-28); Base Excess (BEa) 0.2 mEq/L (-2.0 to +3.0); CO2 Tension 34.8 mmHg (35.0-45.0); Calcium, Ionized (arterial) 1.17 mmol/L (1.12-1.30); Carboxyhemoglobin (COHb) 0.3 gm% (0.0-3.0); Hemoglobin (Hb) 12.3 g/dL (14.0-18.0); Potassium - ABG Lab 3.85 mmol/L (3.70-5.30); pH, Arterial 7.45 (7.35-7.45)
[2021-01-27 06:50] LABS: O2 Tension (PaO2), arterial 55.3 mmHg (> 80.0); Puncture Site RRA
[2021-01-27] MEDS: Aspirin 325 mg Enteric Coated Tablet PO SCH (08:33)
[2021-01-27] MEDS: Famotidine 20 MG TAB PO SCH ×2 (08:33→21:04)
[2021-01-27] MEDS: Enoxaparin Sodium 40 MG/0.4 ML SYRINGE SC SCH ×2 (08:33→21:04)
[2021-01-27] MEDS: Dexamethasone 4 mg/ml Vial SLOW IVP SCH ×2 (08:33→21:04)
[2021-01-27] MEDS: Lantus 1000 UNITS/10 ML VIAL SC SCH (08:35)
[2021-01-27] MEDS: BARICITINIB 2 MG TAB PO SCH (16:30)
[2021-01-27] MEDS: Atorvastatin Calcium 40 MG TAB PO SCH (21:04)
[2021-01-28] MEDS: Propofol 1,000 MG/100 ML VIAL IV PRN ×5 (02:08→19:38)
[2021-01-28] MEDS: HumaLOG 300 UNITS/3 ML VIAL SC PRN ×2 (04:07→16:06)
[2021-01-28 04:41] LABS: #Lymphocytes 0.6 thou/uL (1.20-3.40); #Monocytes 0.7 thou/uL (0.11-0.59); #Neutrophils 14.2 thou/uL (1.40-6.50); %Eosinophils 0.1 % (0.0-10.0); %Lymphocytes 3.9 % (21.0-51.0); %Monocytes 4.7 % (0.0-10.0); %Neutrophils 91.3 % (42.0-75.0); Hemoglobin 10.8 g/dL (14.0-18.0); Mean Corpuscular HGB CONC 34.8 g/dL (32.0-36.0); Mean Corpuscular Hemoglobin 31.7 pg (27.0-31.0); Mean Corpuscular Volume 91.3 fL (78.0-98.0); Mean Platelet Volume 8.3 fL (7.4-10.4); Platelet Count 316 thou/uL (130-400); RBC Distribution Width 12.7 % (11.5-14.5); Red Blood Cell (RBC) Count 3.39 mill/uL (4.70-6.10); White Blood Cell (WBC) Count 15.5 thou/uL (4.8-10.8)
[2021-01-28 05:07] LABS: ALT (SGPT) 53 U/L (8-55); AST (SGOT) 37 U/L (5-34); Albumin 2.4 g/dL (3.4-4.8); Alkaline Phosphatase 77 U/L (40-110); Anion Gap 10 mmol/L (10-20); BUN (Urea Nitrogen) 28 mg/dL (8.4-25.7); Bilirubin, Direct 0.4 mg/dL (0.1-0.3); Bilirubin, Total 0.6 mg/dL (0.2-1.2); Calc. Creatinine Clearance 127 mL/min (70-130); Calcium 8.2 mg/dL (7.8-10.44); Carbon Dioxide 27 mmol/L (23-31); Chloride 104 mmol/L (98-107); Globulin 3.4 g/dL (2.4-3.5); Glucose 175 mg/dL (80-115); Potassium 4.1 mmol/L (3.5-5.1); Protein, Total 5.8 g/dL (5.8-8.1); Sodium 137 mmol/L (136-145)
[2021-01-28] MEDS: Levothyroxine Sodium 100 MCG TAB PO SCH (05:39)
[2021-01-28] MEDS: Mometasone 200 MCG/Formoterol 5 MCG 120 PUFF INHALER INH SCH ×2 (06:24→18:42)
[2021-01-28 06:47] LABS: Actual Bicarbonate (HCO3a) 25.7 mEq/L (22-28); Base Excess (BEa) 1.2 mEq/L (-2.0 to +3.0); CO2 Tension 40.5 mmHg (35.0-45.0); Calcium, Ionized (arterial) 1.16 mmol/L (1.12-1.30); Carboxyhemoglobin (COHb) 0.5 gm% (0.0-3.0); Hemoglobin (Hb) 15.1 g/dL (14.0-18.0); Potassium - ABG Lab 3.94 mmol/L (3.70-5.30); pH, Arterial 7.42 (7.35-7.45)
[2021-01-28 06:48] LABS: O2 Tension (PaO2), arterial 48.8 mmHg (> 80.0)
[2021-01-28 06:49] LABS: Puncture Site RRA
[2021-01-28 06:50] LABS: ALV-art Gradient 292.725 mmHg (0-20)
[2021-01-28] MEDS: Aspirin 325 mg Enteric Coated Tablet PO SCH (08:06)
[2021-01-28] MEDS: Famotidine 20 MG TAB PO SCH (08:06)
[2021-01-28] MEDS: Enoxaparin Sodium 40 MG/0.4 ML SYRINGE SC SCH ×2 (08:07→21:02)
[2021-01-28] MEDS: Dexamethasone 4 mg/ml Vial SLOW IVP SCH ×2 (08:07→21:02)
[2021-01-28] MEDS: Lantus 1000 UNITS/10 ML VIAL SC SCH (08:19)
[2021-01-28] MEDS: Lorazepam 2 MG/ML VIAL SLOW IVP PRN ×2 (10:17→23:12)
[2021-01-28] MEDS: BARICITINIB 2 MG TAB PO SCH (16:06)
[2021-01-28] MEDS ORDERED: Fentanyl CADD 100 ML ONE (17:49)
[2021-01-28] MEDS: Fentanyl CADD 100 ML IV SCH (17:52)
[2021-01-28] MEDS: Atorvastatin Calcium 40 MG TAB PO SCH (21:02)
[2021-01-29] MEDS: Propofol 1,000 MG/100 ML VIAL IV PRN ×5 (00:18→18:45)
[2021-01-29] MEDS: HumaLOG 300 UNITS/3 ML VIAL SC PRN ×4 (03:17→22:36)
[2021-01-29] MEDS: Lorazepam 2 MG/ML VIAL SLOW IVP PRN ×6 (03:48→23:23)
[2021-01-29 04:11] LABS: #Lymphocytes 0.6 thou/uL (1.20-3.40); #Monocytes 0.4 thou/uL (0.11-0.59); #Neutrophils 11.3 thou/uL (1.40-6.50); %Basophils 0.1 % (0.0-1.0); %Eosinophils 0.1 % (0.0-10.0); %Lymphocytes 4.9 % (21.0-51.0); %Monocytes 2.8 % (0.0-10.0); Hemoglobin 10.8 g/dL (14.0-18.0); Mean Corpuscular HGB CONC 34.2 g/dL (32.0-36.0); Mean Corpuscular Hemoglobin 31.4 pg (27.0-31.0); Mean Corpuscular Volume 91.8 fL (78.0-98.0); Mean Platelet Volume 8.2 fL (7.4-10.4); Platelet Count 327 thou/uL (130-400); RBC Distribution Width 12.8 % (11.5-14.5); Red Blood Cell (RBC) Count 3.45 mill/uL (4.70-6.10); White Blood Cell (WBC) Count 12.3 thou/uL (4.8-10.8)
[2021-01-29 04:45] LABS: ALT (SGPT) 47 U/L (8-55); AST (SGOT) 33 U/L (5-34); Albumin 2.4 g/dL (3.4-4.8); Alkaline Phosphatase 74 U/L (40-110); Anion Gap 10 mmol/L (10-20); BUN (Urea Nitrogen) 25 mg/dL (8.4-25.7); Bilirubin, Total 0.5 mg/dL (0.2-1.2); Calc. Creatinine Clearance 125 mL/min (70-130); Calcium 8.1 mg/dL (7.8-10.44); Carbon Dioxide 28 mmol/L (23-31); Chloride 103 mmol/L (98-107); Globulin 3.4 g/dL (2.4-3.5); Glucose 187 mg/dL (80-115); Potassium 4.4 mmol/L (3.5-5.1); Protein, Total 5.8 g/dL (5.8-8.1); Sodium 137 mmol/L (136-145)
[2021-01-29] MEDS: Levothyroxine Sodium 100 MCG TAB PO SCH (05:01)
[2021-01-29] MEDS: Mometasone 200 MCG/Formoterol 5 MCG 120 PUFF INHALER INH SCH ×2 (06:32→21:28)
[2021-01-29 06:59] LABS: Actual Bicarbonate (HCO3a) 28.6 mEq/L (22-28); Base Excess (BEa) 2.9 mEq/L (-2.0 to +3.0); Calcium, Ionized (arterial) 1.14 mmol/L (1.12-1.30); Carboxyhemoglobin (COHb) 0.3 gm% (0.0-3.0); Hemoglobin (Hb) 11.6 g/dL (14.0-18.0); Potassium - ABG Lab 4.14 mmol/L (3.70-5.30); pH, Arterial 7.38 (7.35-7.45)
[2021-01-29 08:03] LABS: O2 Tension (PaO2), arterial 50.3 mmHg (> 80.0); Puncture Site LRA
[2021-01-29] MEDS: Enoxaparin Sodium 40 MG/0.4 ML SYRINGE SC SCH ×2 (08:04→20:34)
[2021-01-29] MEDS: Aspirin 325 mg Enteric Coated Tablet PO SCH (08:04)
[2021-01-29] MEDS: Dexamethasone 4 mg/ml Vial SLOW IVP SCH ×2 (08:04→20:34)
[2021-01-29] MEDS: Lantus 1000 UNITS/10 ML VIAL SC SCH (08:05)
[2021-01-29] MEDS: Pantoprazole 40 MG VIAL IVP SCH (08:05)
[2021-01-29] MEDS ORDERED: Fentanyl CADD 100 ML ONE (13:36)
[2021-01-29] MEDS: Fentanyl CADD 100 ML IV SCH (13:38)
[2021-01-29] MEDS: BARICITINIB 2 MG TAB PO SCH (16:41)
[2021-01-29] MEDS: Atorvastatin Calcium 40 MG TAB PO SCH (20:39)
[2021-01-29] MEDS: Guaifenesin DM 100-10/5 ML UDCUP PO PRN (20:49)
[2021-01-29] MEDS: Vecuronium 10 MG VIAL IVP PRN (23:23)
[2021-01-30] MEDS ORDERED: Fentanyl CADD 100 ML ONE ×2 (04:09→15:58)
[2021-01-30] MEDS: Fentanyl CADD 100 ML IV SCH ×2 (04:20→16:18)
[2021-01-30 04:50] LABS: #Lymphocytes 0.6 thou/uL (1.20-3.40); #Monocytes 0.3 thou/uL (0.11-0.59); #Neutrophils 11.2 thou/uL (1.40-6.50); %Basophils 0.2 % (0.0-1.0); %Eosinophils 0.2 % (0.0-10.0); %Lymphocytes 5.2 % (21.0-51.0); %Monocytes 2.4 % (0.0-10.0); %Neutrophils 92.1 % (42.0-75.0); Hemoglobin 11.3 g/dL (14.0-18.0); Mean Corpuscular HGB CONC 33.8 g/dL (32.0-36.0); Mean Corpuscular Hemoglobin 31.2 pg (27.0-31.0); Mean Corpuscular Volume 92.1 fL (78.0-98.0); Mean Platelet Volume 8.5 fL (7.4-10.4); Platelet Count 341 thou/uL (130-400); RBC Distribution Width 12.6 % (11.5-14.5); Red Blood Cell (RBC) Count 3.61 mill/uL (4.70-6.10); White Blood Cell (WBC) Count 12.1 thou/uL (4.8-10.8)
[2021-01-30 05:22] LABS: ALT (SGPT) 45 U/L (8-55); AST (SGOT) 29 U/L (5-34); Albumin 2.5 g/dL (3.4-4.8); Alkaline Phosphatase 77 U/L (40-110); Anion Gap 10 mmol/L (10-20); BUN (Urea Nitrogen) 21 mg/dL (8.4-25.7); Bilirubin, Total 0.5 mg/dL (0.2-1.2); Calc. Creatinine Clearance 141 mL/min (70-130); Calcium 8.2 mg/dL (7.8-10.44); Carbon Dioxide 28 mmol/L (23-31); Chloride 100 mmol/L (98-107); Globulin 3.6 g/dL (2.4-3.5); Glucose 202 mg/dL (80-115); Potassium 4.6 mmol/L (3.5-5.1); Protein, Total 6.1 g/dL (5.8-8.1); Sodium 133 mmol/L (136-145)
[2021-01-30] MEDS: Levothyroxine Sodium 100 MCG TAB PO SCH (06:15)
[2021-01-30] MEDS: HumaLOG 300 UNITS/3 ML VIAL SC PRN ×2 (06:28→16:16)
[2021-01-30] MEDS: Mometasone 200 MCG/Formoterol 5 MCG 120 PUFF INHALER INH SCH ×2 (07:07→20:12)
[2021-01-30 07:20] LABS: Actual Bicarbonate (HCO3a) 28.6 mEq/L (22-28); Base Excess (BEa) 3.1 mEq/L (-2.0 to +3.0); CO2 Tension 47.5 mmHg (35.0-45.0); Calcium, Ionized (arterial) 1.18 mmol/L (1.12-1.30); Carboxyhemoglobin (COHb) 0.3 gm% (0.0-3.0); Hemoglobin (Hb) 11.9 g/dL (14.0-18.0); O2 Tension (PaO2), arterial 64.6 mmHg (> 80.0); Potassium - ABG Lab 4.27 mmol/L (3.70-5.30)
[2021-01-30 07:22] LABS: Puncture Site RRA
[2021-01-30 07:23] LABS: ALV-art Gradient 446.425 mmHg (0-20)
[2021-01-30] MEDS ORDERED: Lantus 1000 UNITS/10 ML VIAL SC SCH (07:35)
[2021-01-30] MEDS: Guaifenesin DM 100-10/5 ML UDCUP PO PRN ×2 (08:23→12:21)
[2021-01-30] MEDS: Aspirin 325 MG TAB PO SCH (08:23)
[2021-01-30] MEDS: Pantoprazole 40 MG VIAL IVP SCH (08:23)
[2021-01-30] MEDS: Dexamethasone 4 mg/ml Vial SLOW IVP SCH ×2 (08:23→19:58)
[2021-01-30] MEDS: Enoxaparin Sodium 40 MG/0.4 ML SYRINGE SC SCH ×2 (08:24→19:58)
[2021-01-30] MEDS ORDERED: Polyethylene Glycol 3350 17 GM Packet PER TUBE PRN (08:45)
[2021-01-30] MEDS: Lorazepam 2 MG/ML VIAL SLOW IVP PRN (09:56)
[2021-01-30] MEDS: Propofol 1,000 MG/100 ML VIAL IV PRN ×2 (10:52→19:55)
[2021-01-30] MEDS: BARICITINIB 2 MG TAB PO SCH (17:21)
[2021-01-30] MEDS: Atorvastatin Calcium 40 MG TAB PO SCH (19:58)
[2021-01-30] MEDS: Melatonin 3 MG TAB PO PRN (19:59)
[2021-01-31] MEDS: Propofol 1,000 MG/100 ML VIAL IV PRN ×5 (01:01→21:06)
[2021-01-31] MEDS ORDERED: Fentanyl CADD 100 ML ONE ×2 (02:37→23:02)
[2021-01-31] MEDS: Fentanyl CADD 100 ML IV SCH ×3 (02:40→23:04)
[2021-01-31] MEDS: HumaLOG 300 UNITS/3 ML VIAL SC PRN ×2 (04:31→16:48)
[2021-01-31] MEDS: Levothyroxine Sodium 100 MCG TAB PO SCH (04:35)
[2021-01-31 05:23] LABS: #Lymphocytes 0.6 thou/uL (1.20-3.40); #Monocytes 0.4 thou/uL (0.11-0.59); %Basophils 0.3 % (0.0-1.0); %Eosinophils 0.1 % (0.0-10.0); %Lymphocytes 4.9 % (21.0-51.0); %Monocytes 2.8 % (0.0-10.0); Hemoglobin 11.8 g/dL (14.0-18.0); Mean Corpuscular HGB CONC 34.1 g/dL (32.0-36.0); Mean Corpuscular Hemoglobin 31.3 pg (27.0-31.0); Mean Corpuscular Volume 91.9 fL (78.0-98.0); Mean Platelet Volume 8.9 fL (7.4-10.4); Platelet Count 338 thou/uL (130-400); RBC Distribution Width 12.5 % (11.5-14.5); Red Blood Cell (RBC) Count 3.77 mill/uL (4.70-6.10); White Blood Cell (WBC) Count 13.1 thou/uL (4.8-10.8)
[2021-01-31 05:48] LABS: ALT (SGPT) 44 U/L (8-55); AST (SGOT) 31 U/L (5-34); Albumin 2.3 g/dL (3.4-4.8); Alkaline Phosphatase 72 U/L (40-110); Anion Gap 10 mmol/L (10-20); BUN (Urea Nitrogen) 22 mg/dL (8.4-25.7); Bilirubin, Direct 0.3 mg/dL (0.1-0.3); Bilirubin, Total 0.5 mg/dL (0.2-1.2); Calc. Creatinine Clearance 147 mL/min (70-130); Calcium 8.3 mg/dL (7.8-10.44); Carbon Dioxide 30 mmol/L (23-31); Chloride 99 mmol/L (98-107); Globulin 3.7 g/dL (2.4-3.5); Glucose 208 mg/dL (80-115); Potassium 4.4 mmol/L (3.5-5.1); Sodium 135 mmol/L (136-145)
[2021-01-31] MEDS: Mometasone 200 MCG/Formoterol 5 MCG 120 PUFF INHALER INH SCH ×2 (07:07→20:54)
[2021-01-31 07:18] LABS: Actual Bicarbonate (HCO3a) 31.6 mEq/L (22-28); Base Excess (BEa) 5.2 mEq/L (-2.0 to +3.0); Calcium, Ionized (arterial) 1.16 mmol/L (1.12-1.30); Carboxyhemoglobin (COHb) 0.2 gm% (0.0-3.0); Hemoglobin (Hb) 11.7 g/dL (14.0-18.0); O2 Tension (PaO2), arterial 62.1 mmHg (> 80.0); Potassium - ABG Lab 4.17 mmol/L (3.70-5.30); pH, Arterial 7.38 (7.35-7.45)
[2021-01-31 07:19] LABS: Puncture Site RRA
[2021-01-31] MEDS: Enoxaparin Sodium 40 MG/0.4 ML SYRINGE SC SCH ×2 (09:00→21:06)
[2021-01-31] MEDS: Aspirin 325 MG TAB PO SCH (09:00)
[2021-01-31] MEDS: Dexamethasone 4 mg/ml Vial SLOW IVP SCH ×2 (09:00→21:05)
[2021-01-31] MEDS: Lantus 1000 UNITS/10 ML VIAL SC SCH (09:01)
[2021-01-31] MEDS: Pantoprazole 40 MG VIAL IVP SCH (09:03)
[2021-01-31] MEDS: risperiDONE 0.25 MG TAB PO SCH ×2 (10:00→21:05)
[2021-01-31] MEDS: Fentanyl CADD 100 ML ONE ×2 (13:22→13:34)
[2021-01-31] MEDS: BARICITINIB 2 MG TAB PO SCH (17:23)
[2021-01-31] MEDS: Budesonide 0.5 MG/2 ML NEB NEB SCH (20:55)
[2021-01-31] MEDS: Atorvastatin Calcium 40 MG TAB PO SCH (21:05)
[2021-01-31] MEDS: Lorazepam 2 MG/ML VIAL SLOW IVP PRN (21:55)
[2021-02-01] MEDS: Propofol 1,000 MG/100 ML VIAL IV PRN ×4 (03:03→17:43)
[2021-02-01] MEDS: HumaLOG 300 UNITS/3 ML VIAL SC PRN ×2 (03:42→16:30)
[2021-02-01] MEDS: Levothyroxine Sodium 100 MCG TAB PO SCH (05:00)
[2021-02-01] MEDS: Mometasone 200 MCG/Formoterol 5 MCG 120 PUFF INHALER INH SCH ×2 (06:52→18:23)
[2021-02-01] MEDS: Budesonide 0.5 MG/2 ML NEB NEB SCH ×2 (06:52→18:23)
[2021-02-01 07:26] LABS: Actual Bicarbonate (HCO3a) 34.3 mEq/L (22-28); Base Excess (BEa) 6.6 mEq/L (-2.0 to +3.0); Calcium, Ionized (arterial) 1.19 mmol/L (1.12-1.30); Carboxyhemoglobin (COHb) 0.5 gm% (0.0-3.0); Hemoglobin (Hb) 14.1 g/dL (14.0-18.0); O2 Tension (PaO2), arterial 63.1 mmHg (> 80.0); Potassium - ABG Lab 4.31 mmol/L (3.70-5.30); pH, Arterial 7.35 (7.35-7.45)
[2021-02-01 08:11] LABS: CO2 Tension 63.2 mmHg (35.0-45.0); Puncture Site LRA
[2021-02-01] MEDS ORDERED: Fentanyl CADD 100 ML ONE ×2 (08:11→19:06)
[2021-02-01] MEDS: Fentanyl CADD 100 ML IV SCH ×2 (09:07→19:07)
[2021-02-01] MEDS: Aspirin 325 MG TAB PO SCH (09:17)
[2021-02-01] MEDS: Dexamethasone 4 mg/ml Vial SLOW IVP SCH ×2 (09:18→21:02)
[2021-02-01] MEDS: risperiDONE 0.25 MG TAB PO SCH ×2 (09:18→21:02)
[2021-02-01] MEDS: Pantoprazole 40 MG VIAL IVP SCH (09:18)
[2021-02-01] MEDS: Enoxaparin Sodium 40 MG/0.4 ML SYRINGE SC SCH ×2 (09:18→21:02)
[2021-02-01] MEDS: Lantus 1000 UNITS/10 ML VIAL SC SCH (09:20)
[2021-02-01] MEDS: Lorazepam 2 MG/ML VIAL SLOW IVP PRN ×2 (15:47→22:48)
[2021-02-01] MEDS: BARICITINIB 2 MG TAB PO SCH (17:31)
[2021-02-01] MEDS: Atorvastatin Calcium 40 MG TAB PO SCH (21:02)
[2021-02-01] MEDS: Colchicine 0.6 MG TAB PO SCH (21:02)
[2021-02-01] MEDS: Propofol 500 MG/50 ML VIAL IV PRN (23:53)
[2021-02-02] MEDS: Propofol 500 MG/50 ML VIAL IV PRN ×4 (01:37→08:52)
[2021-02-02] MEDS: HumaLOG 300 UNITS/3 ML VIAL SC PRN ×3 (03:43→17:21)
[2021-02-02] MEDS ORDERED: Fentanyl CADD 100 ML ONE ×2 (04:35→14:46)
[2021-02-02] MEDS: Fentanyl CADD 100 ML IV SCH ×2 (04:39→14:50)
[2021-02-02 04:41] LABS: #Lymphocytes 0.6 thou/uL (1.20-3.40); #Monocytes 0.4 thou/uL (0.11-0.59); #Neutrophils 11.4 thou/uL (1.40-6.50); %Basophils 0.1 % (0.0-1.0); %Eosinophils 0.2 % (0.0-10.0); %Lymphocytes 4.6 % (21.0-51.0); %Neutrophils 92.2 % (42.0-75.0); Mean Corpuscular HGB CONC 33.7 g/dL (32.0-36.0); Mean Corpuscular Hemoglobin 31.4 pg (27.0-31.0); Mean Corpuscular Volume 93.1 fL (78.0-98.0); Mean Platelet Volume 9.2 fL (7.4-10.4); Platelet Count 350 thou/uL (130-400); RBC Distribution Width 13.1 % (11.5-14.5); Red Blood Cell (RBC) Count 3.49 mill/uL (4.70-6.10); White Blood Cell (WBC) Count 12.3 thou/uL (4.8-10.8)
[2021-02-02 04:49] LABS: ALT (SGPT) 40 U/L (8-55); AST (SGOT) 28 U/L (5-34); Albumin 2.4 g/dL (3.4-4.8); Alkaline Phosphatase 65 U/L (40-110); Anion Gap 9 mmol/L (10-20); BUN (Urea Nitrogen) 23 mg/dL (8.4-25.7); Bilirubin, Total 0.5 mg/dL (0.2-1.2); Calc. Creatinine Clearance 131 mL/min (70-130); Calcium 8.2 mg/dL (7.8-10.44); Carbon Dioxide 33 mmol/L (23-31); Chloride 96 mmol/L (98-107); Globulin 3.4 g/dL (2.4-3.5); Glucose 201 mg/dL (80-115); Potassium 4.4 mmol/L (3.5-5.1); Protein, Total 5.8 g/dL (5.8-8.1); Sodium 134 mmol/L (136-145)
[2021-02-02] MEDS: Levothyroxine Sodium 100 MCG TAB PO SCH (05:31)
[2021-02-02] MEDS: Mometasone 200 MCG/Formoterol 5 MCG 120 PUFF INHALER INH SCH ×2 (07:08→20:14)
[2021-02-02] MEDS: Budesonide 0.5 MG/2 ML NEB NEB SCH (07:08)
[2021-02-02 07:35] LABS: Actual Bicarbonate (HCO3a) 32.2 mEq/L (22-28); Base Excess (BEa) 5.2 mEq/L (-2.0 to +3.0); CO2 Tension 58.1 mmHg (35.0-45.0); Calcium, Ionized (arterial) 1.12 mmol/L (1.12-1.30); Carboxyhemoglobin (COHb) 0.3 gm% (0.0-3.0); Hemoglobin (Hb) 12.6 g/dL (14.0-18.0); Potassium - ABG Lab 4.21 mmol/L (3.70-5.30); pH, Arterial 7.36 (7.35-7.45)
[2021-02-02 08:11] LABS: ALV-art Gradient 439.375 mmHg (0-20); O2 Tension (PaO2), arterial 58.4 mmHg (> 80.0); Puncture Site LRA
[2021-02-02] MEDS: risperiDONE 0.25 MG TAB PO SCH ×2 (08:52→20:01)
[2021-02-02] MEDS: Colchicine 0.6 MG TAB PO SCH ×2 (08:52→20:01)
[2021-02-02] MEDS: Lorazepam 2 MG/ML VIAL SLOW IVP PRN ×3 (08:52→22:34)
[2021-02-02] MEDS: Aspirin 325 MG TAB PO SCH (08:52)
[2021-02-02] MEDS: Dexamethasone 4 mg/ml Vial SLOW IVP SCH ×2 (08:52→20:01)
[2021-02-02] MEDS: Enoxaparin Sodium 40 MG/0.4 ML SYRINGE SC SCH ×2 (08:52→20:01)
[2021-02-02] MEDS: Pantoprazole 40 MG VIAL IVP SCH (08:52)
[2021-02-02] MEDS: Lantus 1000 UNITS/10 ML VIAL SC SCH (08:57)
[2021-02-02] MEDS: Propofol 1,000 MG/100 ML VIAL IV PRN ×3 (14:04→23:37)
[2021-02-02] MEDS: BARICITINIB 2 MG TAB PO SCH (17:19)
[2021-02-02] MEDS: Atorvastatin Calcium 40 MG TAB PO SCH (20:01)
[2021-02-03] MEDS ORDERED: Fentanyl CADD 100 ML ONE ×3 (00:21→20:58)
[2021-02-03] MEDS: Fentanyl CADD 100 ML IV SCH ×3 (00:38→21:00)
[2021-02-03 05:32] LABS: Phosphorus 2.7 mg/dL (2.3-4.7)
[2021-02-03] MEDS: Propofol 1,000 MG/100 ML VIAL IV PRN ×4 (06:23→20:33)
[2021-02-03] MEDS: Levothyroxine Sodium 100 MCG TAB PO SCH (06:23)
[2021-02-03] MEDS: HumaLOG 300 UNITS/3 ML VIAL SC PRN (06:30)
[2021-02-03 06:58] LABS: ALT (SGPT) 41 U/L (8-55); AST (SGOT) 29 U/L (5-34); Albumin 2.4 g/dL (3.4-4.8); Alkaline Phosphatase 63 U/L (40-110); Bilirubin, Direct 0.3 mg/dL (0.1-0.3); Bilirubin, Total 0.5 mg/dL (0.2-1.2); Magnesium 1.9 mg/dL (1.6-2.6); Protein, Total 5.6 g/dL (5.8-8.1)
[2021-02-03] MEDS: Mometasone 200 MCG/Formoterol 5 MCG 120 PUFF INHALER INH SCH ×2 (06:58→19:01)
[2021-02-03 07:06] LABS: Actual Bicarbonate (HCO3a) 35.3 mEq/L (22-28); Base Excess (BEa) 8.9 mEq/L (-2.0 to +3.0); CO2 Tension 57.5 mmHg (35.0-45.0); Carboxyhemoglobin (COHb) 0.2 gm% (0.0-3.0); Potassium - ABG Lab 4.01 mmol/L (3.70-5.30); pH, Arterial 7.41 (7.35-7.45)
[2021-02-03 07:09] LABS: O2 Tension (PaO2), arterial 52.9 mmHg (> 80.0); Puncture Site LRA
[2021-02-03 07:10] LABS: ALV-art Gradient 374.325 mmHg (0-20)
[2021-02-03] MEDS ORDERED: Magnesium 2 GM/50 ML 2 GM in Premix Bag 1 BAG IVPB SCH (07:15)
[2021-02-03] MEDS: Aspirin 325 MG TAB PO SCH (09:03)
[2021-02-03] MEDS: Enoxaparin Sodium 40 MG/0.4 ML SYRINGE SC SCH ×2 (09:04→21:57)
[2021-02-03] MEDS: Dexamethasone 4 mg/ml Vial SLOW IVP SCH ×2 (09:04→20:33)
[2021-02-03] MEDS: risperiDONE 0.25 MG TAB PO SCH ×2 (09:04→20:34)
[2021-02-03] MEDS: Colchicine 0.6 MG TAB PO SCH ×2 (09:04→20:34)
[2021-02-03] MEDS: Lantus 1000 UNITS/10 ML VIAL SC SCH (09:08)
[2021-02-03] MEDS: Pantoprazole 40 MG VIAL IVP SCH (09:09)
[2021-02-03] MEDS: Lorazepam 2 MG/ML VIAL SLOW IVP PRN ×4 (10:52→20:09)
[2021-02-03] MEDS: Vecuronium 10 MG VIAL IVP PRN ×5 (11:15→17:27)
[2021-02-03] MEDS: BARICITINIB 2 MG TAB PO SCH (17:27)
[2021-02-03] MEDS: Atorvastatin Calcium 40 MG TAB PO SCH (20:34)
[2021-02-04] MEDS: Vecuronium 10 MG VIAL IVP PRN ×5 (00:10→04:07)
[2021-02-04] MEDS: Lorazepam 2 MG/ML VIAL SLOW IVP PRN ×3 (01:33→04:09)
[2021-02-04] MEDS: Propofol 1,000 MG/100 ML VIAL IV PRN ×5 (02:10→22:52)
[2021-02-04] MEDS: HumaLOG 300 UNITS/3 ML VIAL SC PRN ×2 (04:07→10:37)
[2021-02-04 04:19] LABS: #Lymphocytes 1.2 thou/uL (1.20-3.40); #Monocytes 0.6 thou/uL (0.11-0.59); #Neutrophils 14.5 thou/uL (1.40-6.50); %Basophils 0.1 % (0.0-1.0); %Eosinophils 0.3 % (0.0-10.0); %Lymphocytes 7.1 % (21.0-51.0); %Monocytes 3.7 % (0.0-10.0); %Neutrophils 88.8 % (42.0-75.0); Hemoglobin 12.2 g/dL (14.0-18.0); Mean Corpuscular Hemoglobin 31.3 pg (27.0-31.0); Mean Corpuscular Volume 94.9 fL (78.0-98.0); Mean Platelet Volume 8.9 fL (7.4-10.4); Platelet Count 475 thou/uL (130-400); RBC Distribution Width 13.5 % (11.5-14.5); White Blood Cell (WBC) Count 16.3 thou/uL (4.8-10.8)
[2021-02-04] MEDS ORDERED: Fentanyl CADD 100 ML ONE ×2 (06:29→17:13)
[2021-02-04] MEDS: Mometasone 200 MCG/Formoterol 5 MCG 120 PUFF INHALER INH SCH ×2 (06:30→18:20)
[2021-02-04] MEDS: Levothyroxine Sodium 100 MCG TAB PO SCH (06:35)
[2021-02-04] MEDS: Fentanyl CADD 100 ML IV SCH ×2 (06:38→17:15)
[2021-02-04 06:44] LABS: ALT (SGPT) 52 U/L (8-55); AST (SGOT) 37 U/L (5-34); Albumin 2.6 g/dL (3.4-4.8); Alkaline Phosphatase 80 U/L (40-110); Anion Gap 10 mmol/L (10-20); BUN (Urea Nitrogen) 29 mg/dL (8.4-25.7); Bilirubin, Total 0.6 mg/dL (0.2-1.2); Calc. Creatinine Clearance 122 mL/min (70-130); Calcium 8.1 mg/dL (7.8-10.44); Carbon Dioxide 35 mmol/L (23-31); Chloride 97 mmol/L (98-107); Globulin 3.6 g/dL (2.4-3.5); Glucose 226 mg/dL (80-115); Magnesium 2.1 mg/dL (1.6-2.6); Phosphorus 4.5 mg/dL (2.3-4.7); Potassium 4.9 mmol/L (3.5-5.1); Protein, Total 6.2 g/dL (5.8-8.1); Sodium 137 mmol/L (136-145)
[2021-02-04 06:50] LABS: Actual Bicarbonate (HCO3a) 33.6 mEq/L (22-28); Base Excess (BEa) 2.8 mEq/L (-2.0 to +3.0); Calcium, Ionized (arterial) 1.14 mmol/L (1.12-1.30); Carboxyhemoglobin (COHb) 0.3 gm% (0.0-3.0); Hemoglobin (Hb) 12.9 g/dL (14.0-18.0); O2 Tension (PaO2), arterial 65.7 mmHg (> 80.0); Potassium - ABG Lab 4.45 mmol/L (3.70-5.30)
[2021-02-04 08:47] LABS: Actual Bicarbonate (HCO3a) 33.8 mEq/L (22-28); Base Excess (BEa) 7.1 mEq/L (-2.0 to +3.0); CO2 Tension 59.2 mmHg (35.0-45.0); Carboxyhemoglobin (COHb) 0.4 gm% (0.0-3.0); Hemoglobin (Hb) 11.3 g/dL (14.0-18.0); O2 Tension (PaO2), arterial 64.6 mmHg (> 80.0); pH, Arterial 7.38 (7.35-7.45)
[2021-02-04 08:49] LABS: CO2 Tension 88.5 mmHg (35.0-45.0); Puncture Site LRA
[2021-02-04 08:50] LABS: Puncture Site LRA
[2021-02-04 08:50] LABS: ALV-art Gradient 394.075 mmHg (0-20)
[2021-02-04] MEDS: Dexamethasone 4 mg/ml Vial SLOW IVP SCH ×2 (08:56→19:36)
[2021-02-04] MEDS: Pantoprazole 40 MG VIAL IVP SCH (08:56)
[2021-02-04] MEDS: Aspirin 325 MG TAB PO SCH (08:57)
[2021-02-04] MEDS: risperiDONE 0.25 MG TAB PO SCH ×2 (08:57→19:37)
[2021-02-04] MEDS: Lantus 1000 UNITS/10 ML VIAL SC SCH (08:57)
[2021-02-04] MEDS: Enoxaparin Sodium 40 MG/0.4 ML SYRINGE SC SCH ×2 (08:57→19:36)
[2021-02-04] MEDS: Colchicine 0.6 MG TAB PO SCH ×2 (08:58→19:37)
[2021-02-04 12:38] VITALS: BMI 25.4
[2021-02-04] MEDS: BARICITINIB 2 MG TAB PO SCH (17:15)
[2021-02-04] MEDS: Atorvastatin Calcium 40 MG TAB PO SCH (19:37)
[2021-02-05] MEDS: Vecuronium 10 MG VIAL IVP PRN ×5 (01:28→23:35)
[2021-02-05] MEDS ORDERED: Fentanyl CADD 100 ML ONE ×3 (02:14→19:49)
[2021-02-05] MEDS: Fentanyl CADD 100 ML IV SCH ×3 (02:20→19:54)
[2021-02-05] MEDS: Levothyroxine Sodium 100 MCG TAB PO SCH (04:59)
[2021-02-05] MEDS ORDERED: Fentanyl BOLUS 250 ML IVPB PRN (06:11)
[2021-02-05] MEDS ORDERED: Morphine 2 MG/ML VIAL SLOW IVP PRN (06:12)
[2021-02-05] MEDS: Mometasone 200 MCG/Formoterol 5 MCG 120 PUFF INHALER INH SCH ×2 (07:16→18:15)
[2021-02-05 07:33] LABS: Actual Bicarbonate (HCO3a) 34.7 mEq/L (22-28); Base Excess (BEa) 7.9 mEq/L (-2.0 to +3.0); CO2 Tension 59.7 mmHg (35.0-45.0); Calcium, Ionized (arterial) 1.08 mmol/L (1.12-1.30); Carboxyhemoglobin (COHb) 0.3 gm% (0.0-3.0); Hemoglobin (Hb) 11.5 g/dL (14.0-18.0); Potassium - ABG Lab 4.01 mmol/L (3.70-5.30); pH, Arterial 7.38 (7.35-7.45)
[2021-02-05 07:34] LABS: ALV-art Gradient 409.525 mmHg (0-20); O2 Tension (PaO2), arterial 50.6 mmHg (> 80.0); Puncture Site LRA
[2021-02-05] MEDS: Lorazepam 2 MG/ML VIAL SLOW IVP PRN ×3 (08:04→14:09)
[2021-02-05] MEDS: Propofol 1,000 MG/100 ML VIAL IV PRN ×4 (08:04→20:11)
[2021-02-05] MEDS: Enoxaparin Sodium 40 MG/0.4 ML SYRINGE SC SCH ×2 (08:22→19:52)
[2021-02-05] MEDS: Colchicine 0.6 MG TAB PO SCH ×2 (08:22→19:53)
[2021-02-05] MEDS: Dexamethasone 4 mg/ml Vial SLOW IVP SCH ×2 (08:22→19:53)
[2021-02-05] MEDS: risperiDONE 0.25 MG TAB PO SCH ×2 (08:22→19:53)
[2021-02-05] MEDS: Aspirin 325 MG TAB PO SCH (08:22)
[2021-02-05] MEDS: Pantoprazole 40 MG VIAL IVP SCH (08:23)
[2021-02-05] MEDS: Lantus 1000 UNITS/10 ML VIAL SC SCH (08:23)
[2021-02-05] MEDS: Pantoprazole 40 MG GRANULES PACKET PER TUBE SCH (09:39)
[2021-02-05] MEDS: Atorvastatin Calcium 40 MG TAB PO SCH (19:53)
[2021-02-06] MEDS: Propofol 1,000 MG/100 ML VIAL IV PRN ×3 (00:55→08:00)
[2021-02-06] MEDS ORDERED: Fentanyl CADD 100 ML ONE (04:34)
[2021-02-06] MEDS: Fentanyl CADD 100 ML IV SCH (04:37)
[2021-02-06] MEDS: Vecuronium 10 MG VIAL IVP PRN ×2 (04:45→07:01)
[2021-02-06] MEDS: Levothyroxine Sodium 100 MCG TAB PO SCH (05:03)
[2021-02-06] MEDS: Lorazepam 2 MG/ML VIAL SLOW IVP PRN ×4 (07:01→12:05)
[2021-02-06 07:04] VITALS: TEMP 99.7
[2021-02-06] MEDS: Pantoprazole 40 MG GRANULES PACKET PER TUBE SCH (08:00)
[2021-02-06] MEDS: Enoxaparin Sodium 40 MG/0.4 ML SYRINGE SC SCH (08:00)
[2021-02-06] MEDS: risperiDONE 0.25 MG TAB PO SCH (08:00)
[2021-02-06] MEDS: Aspirin 325 MG TAB PO SCH (08:00)
[2021-02-06] MEDS: Dexamethasone 4 mg/ml Vial SLOW IVP SCH (08:00)
[2021-02-06] MEDS: Colchicine 0.6 MG TAB PO SCH (08:00)
[2021-02-06] MEDS: Lantus 1000 UNITS/10 ML VIAL SC SCH (08:01)
[2021-02-06] MEDS: Mometasone 200 MCG/Formoterol 5 MCG 120 PUFF INHALER INH SCH (08:04)
[2021-02-06 08:12] VITALS: BP 97/56
[2021-02-06 08:31] LABS: Actual Bicarbonate (HCO3a) 35.4 mEq/L (22-28); Base Excess (BEa) 9.5 mEq/L (-2.0 to +3.0); CO2 Tension 55.4 mmHg (35.0-45.0); Calcium, Ionized (arterial) 1.08 mmol/L (1.12-1.30); Carboxyhemoglobin (COHb) 0.1 gm% (0.0-3.0); Hemoglobin (Hb) 10.3 g/dL (14.0-18.0); Potassium - ABG Lab 3.78 mmol/L (3.70-5.30); pH, Arterial 7.42 (7.35-7.45)
[2021-02-06 08:46] LABS: O2 Tension (PaO2), arterial 56.5 mmHg (> 80.0); Puncture Site RRA
[2021-02-06] MEDS ORDERED: Morphine 10 MG/ML VIAL SLOW IVP SCH (10:30)
[2021-02-06] MEDS: Morphine 4 MG/ML VIAL SLOW IVP PRN ×3 (10:46→12:05)
== END 2021-02-06 13:25 | disposition expired | DRG 870 ==
LOC: ERS 17:37 → ERHOLD 21:53 → IMCU/EMU 01-18 00:14 → 2SE 01-18 09:26 → OBSVTOIN 01-18 13:25 → T4-A 01-18 18:34 → IMCU/EMU 01-22 04:22 → CCU 01-25 15:37
PROVIDERS: ADMIT Emergency Medicine; ATTEND Emergency Medicine
PROC: 8E0ZXY6 Isolation (ICD-10-PCS; 2021-01-17)
PROC: 3E0333Z Introduction of Anti-inflammatory into Peripheral Vein, Percutaneous Approach (ICD-10-PCS; 2021-01-18)
PROC: 5A0955A Assistance with Respiratory Ventilation, Greater than 96 Consecutive Hours, High Flow/Velocity Cannula (ICD-10-PCS; 2021-01-20)
PROC: XW0DXM6 Introduction of Baricitinib into Mouth and Pharynx, External Approach, New Technology Group 6 (ICD-10-PCS; principal; 2021-01-22)
PROC: 5A09457 Assistance with Respiratory Ventilation, 24-96 Consecutive Hours, Continuous Positive Airway Pressure (ICD-10-PCS; 2021-01-22)
PROC: 5A1955Z Respiratory Ventilation, Greater than 96 Consecutive Hours (ICD-10-PCS; 2021-01-25)
PROC: 0BH18EZ Insertion of Endotracheal Airway into Trachea, Via Natural or Artificial Opening Endoscopic (ICD-10-PCS; 2021-01-25)
PROC: 0DH68UZ Insertion of Feeding Device into Stomach, Via Natural or Artificial Opening Endoscopic (ICD-10-PCS; 2021-01-25)
PROC: 3E0G76Z Introduction of Nutritional Substance into Upper GI, Via Natural or Artificial Opening (ICD-10-PCS; 2021-01-25)
DX: A41.89 Other specified sepsis (principal); U07.1 COVID-19; J12.82 Pneumonia due to coronavirus disease 2019; J80 Acute respiratory distress syndrome; E43 Unspecified severe protein-calorie malnutrition; G93.1 Anoxic brain damage, not elsewhere classified; R65.20 Severe sepsis without septic shock; Z66 Do not resuscitate; Z51.5 Encounter for palliative care; E03.9 Hypothyroidism, unspecified; E78.5 Hyperlipidemia, unspecified; G47.00 Insomnia, unspecified; Z96.651 Presence of right artificial knee joint; D64.9 Anemia, unspecified; E11.65 Type 2 diabetes mellitus with hyperglycemia; T38.0X5A Adverse effect of glucocorticoids and synthetic analogues, initial encounter; E78.00 Pure hypercholesterolemia, unspecified; F41.9 Anxiety disorder, unspecified; J84.178 Other interstitial pulmonary diseases with fibrosis in diseases classified elsewhere; R00.1 Bradycardia, unspecified; Z78.1 Physical restraint status; Z68.26 Body mass index [BMI] 26.0-26.9, adult; Z79.899 Other long term (current) drug therapy; Z79.890 Hormone replacement therapy; Z79.82 Long term (current) use of aspirin; Z79.84 Long term (current) use of oral hypoglycemic drugs; Z83.3 Family history of diabetes mellitus; Z87.891 Personal history of nicotine dependence; Z86.73 Personal history of transient ischemic attack (TIA), and cerebral infarction without residual deficits
CPT/HCPCS: 36415; 36416; 36600; 71045; 71275; 80053; 80076; 82805; 83735; 84100; 84145; 84484; 85025; 85379; 86140; 93005; 94002; 94003; 94660; 94760; 96372; 96374; 96375; C9113; G0378; J1100; J1200; J1650; J1815; J1885; J2060; J2270; J2704; J3010; J3475; J3490; J7626; J8540